=== PATIENT | female | born 1950 | race Caucasian/White ===

== ENCOUNTER 2017-07-06 07:00 | Inpatient (IN) | payer MEDICARE, OTHER, SELFPAY ==
[2017-07-06] VITALS (18 sets, daily range): BP systolic 143–183; BP diastolic 76–105; PULSE 70–92; RESP 16–19; TEMP 36.2–37.4; O2SAT 94–98; BMI 51.3; BMI 51.4
--- NOTE | 2017-07-06 07:10 | ED.RN ---
daughter expressed that pt sx have improved since initally saw her. pt has had SEVERINO since last night and then woke with sx of left sided weakness and decreased sensation, as well as left facial droop which was reported by daughter to be improved upon arrival. no facial drop noted on arrival.
[2017-07-06 07:11] LABS: Bedside Glucose 85 mg/dL (70-110)
--- NOTE | 2017-07-06 07:18 | NURSING ---
NO LW OR POA
--- NOTE | 2017-07-06 07:28 | EKG12_ITS ---
Test Reason : NEURO Blood Pressure : / mmHG Vent. Rate : 073 BPM Atrial Rate : 073 BPM P-R Int : 152 ms QRS Dur : 078 ms QT Int : 386 ms P-R-T Axes : 041 002 047 degrees QTc Int : 425 ms Normal sinus rhythm Normal ECG Confirmed by ALICIA BARNEY MD ([id number]), industrial editor SHERRI GARZA ([id number] on 07/12/2017 2:33:56 PM Referred By: STEVE Confirmed By:ALICIA BARNEY MD
--- NOTE | 2017-07-06 07:28 | CT_ITS ---
STUDY: CT BRAIN WITHOUT CONTRAST REASON FOR EXAM: Female, 67 years old. Left weakness RADIATION DOSAGE (If Supplied By Facility): CTDIvol = ( 60.81 ) mGy, DLP = ( 1021.47 ) mGycm TECHNIQUE: Transaxial CT imaging of the brain was performed without administration of intravenous contrast material. Individualized dose optimization techniques were used for this CT. COMPARISON: December 11, 2013 FINDINGS: The soft tissues are unremarkable. The osseous structures are unremarkable. Normal size ventricles and extra-axial spaces for the patient's age. The white matter tracts are unremarkable. The basal ganglia and thalami are unremarkable. No abnormalities are seen in the brainstem. The cerebellum is unremarkable. There is no intracranial hemorrhage. There are no findings of acute ischemia. The visualized sinuses are unremarkable. CT/Brain/Head without Contrast IMPRESSION: No acute intracranial abnormalities or changes. Electronically Signed: Madhuri Jacobs MD at 8:10 EDT Tel Direct: [phone], Service support ,
[2017-07-06 07:39] LABS: Absolute Lymphocyte Count 2.42 X10^3/ul (0.83-4.51); Absolute Neutrophil Count 2.8 X10^3/uL (2.0-7.7); Basophil# 0.02 X10^3/uL; Basophil% 0.3 % (0-1); Eosinophil# 0.26 X10^3/uL; Eosinophils% 4.5 % (0-5); Hemoglobin 13.1 g/dl (12.0-15.0); Lymphocyte # 2.42 X10^3/ul (4.0); Lymphocyte % 41.4 % (19-41); Mean Corpuscular Hgb 29.9 pg (27.0-32.0); Mean Corpuscular Volume 93.6 fL (81-99); Mean Platelet Vol. 9.9 fl (6.2-12.0); Monocyte# 0.39 X10^3/uL; Monocyte% 6.7 % (0-10); Neutrophil # 2.75 X10^3/uL (2.7-7.7); Neutrophil % 47.1 % (47-70); Platelet Count 243 K/mm3 (150-450); RBC Distribution Width CV 13.2 % (11.6-14.6); RBC Distribution Width SD 45.1 fl (35.1-43.9); Red Blood Count 4.38 M/mm3 (4.2-5.4); White Blood Count 5.8 K/mm3 (4.4-11.0)
--- NOTE | 2017-07-06 07:39 | RAD_ITS ---
STUDY: X-RAY CHEST REASON FOR EXAM: Female, 67 years old. Shortness of breath TECHNIQUE: A single frontal view of the chest was obtained. COMPARISON: November 16, 2016 FINDINGS: The lungs are adequately aerated. There are no focal airspace opacities. There is no blunting of the costophrenic angles. There is stable minimal symmetric pleural thickening in the apices. A small calcified granuloma is again seen in the mid right lung. The cardiac silhouette is normal in size. The mediastinum and hilar regions are unremarkable. The central vessels are prominent. Normal visualized aortic arch and descending thoracic aorta. There is moderate levoscoliosis in the upper thoracic spine. The visualized ribs, clavicles, and shoulders are unremarkable. There is no demonstrated abnormality of the visualized upper abdomen. RAD/Chest 1 View IMPRESSION: Vascular congestion is present. There is no obvious effusion. Electronically Signed: Madhuri Jacobs MD at 8:04 EDT Tel Direct: [phone], Service support ,
[2017-07-06 07:42] LABS: POSITIVE COUNT NO; POSITIVE DIFFERENTIAL NO; POSITIVE MORPHOLOGY NO
[2017-07-06 07:43] LABS: International Normalized Ratio 0.9; Prothrombin Time (Protime)PT. 11.9 SECONDS (11.7-14.9)
[2017-07-06 07:44] LABS: Partial Thromboplast Time 32.4 Seconds (24.1-36.2)
[2017-07-06 07:56] LABS: Anion Gap 6 (5-15); BUN 19 mg/dL (7-18); BUN/Creat Ratio 26.9 RATIO (10-20); Calcium,Total 8.8 mg/dL (8.5-10.1); Chloride 110 mmol/L (98-107); Creatinine, Serum 0.71 mg/dL (0.55-1.02); EST Glomerular Filtration Rate 88 mL/min (>60); Est Glom Filt Rate - Afr Amer 107 mL/min (>60); Glucose 94 mg/dL (74-106); Potassium 4.4 mmol/L (3.5-5.1); Sodium Level 144 mmol/L (136-145)
[2017-07-06] MEDS: Acetaminophen 650 MG Suppository RECTAL (09:12)
--- NOTE | 2017-07-06 09:28 | NURSING ---
104 LT SIDED WEAKNESS, TIA, STROKE PAINTSIL
--- NOTE | 2017-07-06 09:37 | CASEMGMT ---
Social Work Note In to complete the initial assessment as pt is being admitted to [facility]. Introduced self and role at [facility]. The pt reports that she lives alone in a one level home with no entry steps. Denies DME in the home and reports to be independent. Pt still drives. No hx of HHC. Pt does not anticipate needs at discharge. States that her daughter, Tri Tripp, is her HCPOA. States that these are on file, but SW unable to locate. Will relay to inpatient staff to request that the pt's family bring them in. Pt's PCP is Dr. Rios. Pt quit smoking in 1979 and quit drinking 10 years ago. Denies any mental health diagnoses or symptoms. Lists her daughter and sister as supports and both are present on admission. Made aware that case management will follow on the acute side of the hospital. Left vm for Patricia GUEVARA CM, with update. Cassandra King, CONTINUITY WRITER, ORACLE ETL DEVELOPER
--- NOTE | 2017-07-06 09:51 | PCM.HP.STD ---
Problem List (1) Left-sided weakness Status: Acute (2) History of fibromyalgia Status: Chronic (3) Invasive ductal carcinoma of breast Status: Chronic Comment: Right (4) Obesity (BMI 30-39.9) Status: Chronic History of Present Illness Date of Admission: 07/06/17 Chief Complaint: Left sided weakness, left facial droop, slurred speech, gaitr abnormality The patient is a 67 year old F with past medical history of fibromyalgia, reactive airway disease, obesity comes in with complains of gait abnormality, slurred speech, right facial numbness, left facial droop which was present when she woke up at 6 AM. Patient at baseline is a very active patient, does not use any assistive device in walking, woke up this morning and felt a little bit off balance as she was walking to the bathroom. She also felt that her right side of the face was numb and left side of the face was droopy. She called her daughter who noted that his speech was slurred. She had at the time left leg heaviness and numbness. She complained of feeling a little lightheaded but denied any palpitations or dizziness or chest pain or shortness of breath. She had severe pounding headache the night before admission. She usually does not have headaches. No history of hypertension On arrival to the ED, her blood pressure was elevated at 183/93, temperature 97.6 F, heart rate is 78, respiratory rate 19, SPO2 is 95% on room air. Laboratory investigations were unremarkable at admission. Scan of the head was negative for any acute intracranial abnormality. Chest x-ray reported some vascular congestion. Past Medical History Past Medical History (Chronic Problems): Chronic Problems Reactive airway disease that is not asthma (Chronic) NSVT (nonsustained ventricular tachycardia) (Chronic) Invasive ductal carcinoma of breast (Chronic) Right History of fibromyalgia (Chronic) Chronic back pain (Chronic) Obesity (BMI 30-39.9) (Chronic) Somatic dysfunction of rib cage region (Chronic) Benign positional vertigo (Chronic) Allergies latex Allergy (Verified 07/06/17 07:01) Other adhesive Adverse Reaction (Verified 07/06/17 07:01) Other aspirin Adverse Reaction (Verified 07/06/17 07:01) Nausea/Vom/Diarrhea oxycodone [From OxyContin] Adverse Reaction (Verified 07/06/17 07:01) Other CONTROL Allergy (Uncoded 07/06/17 07:01) Other Home Medications: Ambulatory Orders Medication Instructions Recorded No Known/Unobtainable [No Known 11/16/16 Home Medications] Surgical History: adenoidectomy, appendectomy, cholecystectomy, hysterectomy, tonsillectomy, - - All teeth removal/edentulous, breast biopsy 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 Denies: Anorexia, Chills, Fever, Night Sweats, Malaise, Weight Change, Fatigue Eyes: Denies: Blurred vision, Cataracts, Conjunctivae Inflammation, Double vision HEENT: Denies: Difficulty Hearing, Difficulty Swallowing, Head Aches, Hearing Changes, Sinus Congestion, Sinus Drainage Cardiovascular: Denies: Chest Pain, Claudication, Orthopnea, Palpitations, Paroxysmal Noc. Dyspnea Respiratory: Denies: Cough, Hemoptysis, Shortness of breath at rest, Shortness of breath upon exertion, Sputum production Gastrointestinal: Denies: Abdominal Pain, Hematemesis, Nausea, Vomiting Genitourinary: Denies: Dysuria, Frequency, Incontinence Gynecological: Denies: Breast symptoms, Excessively long or heavy periods, Vaginal discharge Musculoskeletal: Denies: Joint Pain, Joint stiffness, Joint swelling, Joint Tenderness Skin: Denies: Rash, Wounds Neurological: Reports: Slurred speech, Difficulty swallowing, Focal weakness, Headaches, Incoordination, Numbness, Tingling. Denies: Tremor, Seizures Psychiatric: Denies: Anxiety, Depression, Homicidal Ideations, Suicidal Ideations Hematologic/ Lymphatic: Denies: Easy Bruising, Easy Bleeding VTE Information - Inpt Only VTE Present on Admission: No VTE Pharm Prophylaxis ordered?: Yes Patient Problems: Active and Suspected Problems Left-sided weakness (Acute) - Physical Exam General: Alert, Oriented x3, Cooperative, - - obese HEENT: Atraumatic, PERRLA, EOMI, Normocephalic Oral: Moist Mucosa Neck: Supple Lungs: Clear to auscultation, Normal air movement Cardiovascular: Regular rate, Regular Rhythm, Normal S1, Normal S2, No murmurs Abdomen: Bowel Sounds Present, Soft, Non Tender, Non-Distended, No Hepato-splenomegaly, Obese Extremities: No edema, Capillary Refill Less than 3 Seconds Skin: No rashes, No breakdown Musculoskeletal: No Tenderness to Palpation of Joints or Extremities Neurological: Cranial nerves II-XII grossly intact - except for left facial numbness, and power of 4/5 in the LLE, Neuro grossly intact Psych/Mental Status: Normal Affect, Appropriate Vital Signs Temp Pulse Resp BP Pulse Ox 97.2 F L 87 16 157/79 H 96 07/06/17 08:24 07/06/17 09:11 07/06/17 09:11 07/06/17 09:11 07/06/17 09:11 Assessment/Plan Active and Suspected Problems Left-sided weakness (Acute) 67-year-old female with past medical history of fibromyalgia, reactive airway disease, obesity comes in with complaints of slurred speech, right-sided numbness, left facial droop, left lower extremity heaviness with numbness. Most of her symptoms had resolved on admission. Vitals were stable. Initial CT of the head was negative 1. Left lower extremity heaviness, gait abnormality, slurred speech concerning for possible TIA versus CVA, positive family history of CVA in the family Initial CT of the head was negative, initial blood pressure on arrival was elevated but came down as patient was being admitted. Plan: Admit to PCU, monitor on telemetry, neurology consult, MRI of the brain, MRA of the head and neck, lipid profile in a.m., 2D echo, HbA1c, PT, OT, ST consult, monitor per protocol. 2. Hypertension, no history of high blood pressure, will allow for permissive hypertension, continue to monitor blood pressure 3. Dysphagia, ongoing for several weeks with food being stuck, failed swallow eval in the ED, will have a bedside evaluation and speech therapy is being consulted. 4. Fibromyalgia 5. Obesity, weight loss and exercise advised 6. Reactive airway disease, no signs of acute exacerbation, would have breathing treatments as needed pain 7. DVT PPx - Lovenox SC Code Visit Inpatient E&M: 45364 Init Hosp L3
--- NOTE | 2017-07-06 09:56 | ED.DCSUM_ITS ---
- ER Visit Summary Date of Service: 07/06/17 Chief Complaint: Left-sided weakness History of Present Illness: The patient is a 67 F who reports that upon getting up at 615 this morning she felt numbness to the right side of her face. She looked in the mirror noted the left side of her face seemed to be drooping. She states her left leg felt like it was giving out when she was walking. She denies paresthesias in her arms or legs. She called her daughter who felt her speech was somewhat slurred and when daughter arrived at her mom's home she did note left facial droop. Facial droop and speech are improved at this time. On initial evaluation she states the facial numbness is improving but not completely resolved. Past history significant for SVT, fibromyalgia, vertigo, uterine and breast cancer, back pain, reactive airway disease. She does have family history of stroke in her father. Physical Examination: Vital signs show initial blood pressure 183/93, otherwise normal. The time of my examination her blood pressure is 167/98. Head and neck examination is grossly unremarkable. Heart is regular rate and rhythm. Lung sounds are clear. Abdomen is soft and nontender. NIH score is 2. She receives one point for left leg weakness. Left leg does fall to the bed by the count of 3, but she is also complaining of left hip pain also. She does have slight decreased sensation to light touch on the right face. Test Results: CT the head shows no acute abnormalities. Portable chest x-ray reveals vascular congestion with no evidence of effusion. EKG is sinus at 73 with no sign of ischemia. CBC and chemistry studies are normal. Coags normal. Troponin less than 0.02. Emergency Department Course and Treatment: Stroke team was not initiated as the patient's symptoms are improving. Patient remained stable throughout her ER stay and repeat evaluation reveals normal sensation on her face. Left leg still falls to the bed by count of 3 giving her an NIH score of 1. Nursing staff did going to do bedside swallow eval but she was not able to pass this. Patient tells the nurse that she has been having trouble swallowing for the last 3 weeks. At this time she will be admitted for remainder of stroke workup. Treatment Plan: [] Disposition: Admit Impression: TIA This note was generated with [employer] software. It may contain incorrect words, spelling, and punctuation that were not noted in review of the chart prior to signing ED Disposition - Plan for ED Patient: Disposition: Acute Care Hospital [facility] Chief Complaint: Neuro S/Sx
--- NOTE | 2017-07-06 10:07 | ECHOCS_ITS ---
Reason For Study: TIA/CVA Procedure This was a 2D Doppler, Color Flow transthoracic echocardiogram. Exam performed portable in patient room. Left Ventricle Normal size and thickness. The estimated ejection fraction is 65 %. Normal diastology for age. No regional wall motion abnormalities noted. Right Ventricle Normal size and thickness. Normal systolic function. Atria Normal left atrium. Normal right atrium. Normal atrial septum. Bubble contrast study negative for right to left interatrial shunt. Mitral Valve Mild diffuse mitral valve thickening. Anterior leaflet mitral valve prolapse. Trivial mitral valve insufficiency. Tricuspid Valve Normal tricuspid valve. Trivial tricuspid valve insufficiency. Right ventricular systolic pressure estimated to be 35 mmHg. Aortic Valve Normal aortic valve. Trisinus/trileaflet aortic valve. Pulmonic Valve Normal pulmonic valve. Trivial pulmonic valve insufficiency. Great Vessels Normal aortic root. Normal arch. Normal inferior vena cava. Inferior vena cava collapse with sniff. Pericardium/Pleural No pericardial effusion. Medication Performed a rapid injection of agitated mix of 9 cc saline and 1cc air to assess for atrial septal defect. Definity0.5ml given slow IV push to enhance endocardial definition. MMode/2D Measurements & Calculations LVIDd: 5.1 cm IVSd: 0.82 cm Ao root diam: 3.2 cm LVIDs: 3.5 cm LVPWd: 0.87 cm LA dimension: 4.3 cm RVDd: 4.0 cm FS: 31.1 % LAV(MOD-bp): 55.1 ml LA A4 area: 19.8 cm2 RA A4 area: 12.1 cm2 LAV(MOD-bp) Indexed: 27.3 ml/m2 LAV(MOD-sp2): 53.8 ml LAV(MOD-sp4): 54.8 ml Doppler Measurements & Calculations MV E max adán: 79.2 cm/sec Lat Peak E' Adán: 7.9 cm/sec Med Peak E' Adán: 6.1 cm/sec MV A max adán: 66.6 cm/sec E/E' lat: 10.1 E/E' med: 13.1 MV E/A: 1.2 Ao V2 max: 125.8 cm/sec LV V1 max: 98.7 cm/sec PA V2 max: 88.4 cm/sec Ao max P.3 mmHg LV V1 max P.9 mmHg Ao V2 mean: 96.9 cm/sec Ao mean P.0 mmHg Ao V2 VTI: 27.5 cm TR max adán: 271.6 cm/sec TR max P.5 mmHg Interpretation Summary The estimated ejection fraction is 65 %. Normal diastology for age. Bubble contrast study negative for right to left interatrial shunt. Equivical anterior mitral valve prolapse. Trivial mitral valve insufficiency. Trivial tricuspid valve insufficiency. Right ventricular systolic pressure estimated to be 35 mmHg. Compared to echo report dated 06/06/2014, no appreciable changes noted. The study was technically difficult. Contrast injection was performed. Ordering Physician: Mindi Marie Referring Physician: Yair Rios Performed By: Indira Watters, MARCELLUS, RVT
--- NOTE | 2017-07-06 10:07 | MRI_ITS ---
STUDY: MRA NECK WITHOUT CONTRAST REASON FOR EXAM: Female, 67 years old. CVA;left sided weakness, gait abnormality, slurred speech, right facial numbness, left facial droop; hx breast ca,uterine ca. TECHNIQUE: Source images were obtained, MIPs were performed. The study was performed unenhanced. COMPARISON: None. FINDINGS: RIGHT CAROTID ARTERIES: Normal right common carotid artery (CCA). There is loss of signal at the carotid bulb and origin of the right ICA. Normal remaining right internal carotid (ICA) artery without a hemodynamically significant stenosis. Normal visualized cervical portion of the right internal carotid artery. Normal origin of the right external carotid artery (ECA). LEFT CAROTID ARTERIES: Normal left common carotid artery (CCA). There is loss of signal at the carotid bulb and origin of the right ICA. Normal remaining left internal carotid (ICA) artery without a hemodynamically significant stenosis. Normal visualized cervical portion of the left internal carotid artery. Normal origin of the left external carotid artery (ECA). VERTEBRAL ARTERIES: Normal antegrade flow within the bilateral vertebral artery without a hemodynamically significant stenosis. MRI/MRA Neck without Contrast IMPRESSION: Left signal at the right carotid bulbs which may be secondary to artifact versus stenosis. Further evaluation with sonography can be obtained. Electronically Signed: Jose Guadalupe Butler MD at 15:43 EDT Tel , Service support ,
--- NOTE | 2017-07-06 10:07 | MRI_ITS ---
STUDY: MRI BRAIN WITHOUT CONTRAST REASON FOR EXAM: Female, 67 years old. CVA;left sided weakness, gait abnormality, slurred speech, right facial numbness, left facial droop; hx breast ca,uterine ca. TECHNIQUE: Standardized multiplanar fat and water weighted pulse sequences were obtained. COMPARISON: None. FINDINGS: Normal size of the ventricles and extra-axial spaces for the patient's age. Normal white matter tracts of the supratentorial brain. Normal bilateral basal ganglia. Normal thalami. There is no extra-axial fluid accumulation. Normal flow voids within the major intracranial circulation suggesting patency by spin echo criteria. Normal sella turcica, pituitary gland, infundibular stalk, optic chiasm and hypothalamus. Normal tectal plate and pineal gland. Normal midbrain, anand and medulla. Normal cerebellum. Normal basal cisterns. Normal bilateral temporal bones. Normal bilateral internal auditory canals. No demonstrated orbital abnormality, within the constraints of a routine brain study. Normal visualized paranasal sinuses. Normal calvarium and skull base. Normal visualized soft tissue structures. Normal visualized upper cervical spine. MRI/Brain without Contrast IMPRESSION: Normal unenhanced MRI of the brain. Electronically Signed: Jose Guadalupe Butler MD at 15:35 EDT Tel , Service support ,
--- NOTE | 2017-07-06 10:07 | MRI_ITS ---
STUDY: MRA OF THE HEAD WITHOUT CONTRAST REASON FOR EXAM: Female, 67 years old. CVA;left sided weakness, gait abnormality, slurred speech, right facial numbness, left facial droop; hx breast ca,uterine ca. TECHNIQUE: 3-D [id number]-[id number] (TOF) imaging was performed with MIPs. The study was performed unenhanced. COMPARISON: None. FINDINGS: Normal bilateral petrous carotid arteries. Normal right cavernous carotid artery with a normal supraclinoid bifurcation. Normal left cavernous carotid artery with a normal supraclinoid bifurcation. Normal right A1 segments of the anterior cerebral artery. Normal left A1 segments of the anterior cerebral artery. Normal intact anterior communicating artery (ACOM). Normal bilateral A2 segments of the anterior cerebral arteries. Normal right M1 and M2 segments of the middle cerebral arteries, with a normal M1 bifurcation. Normal left M1 and M2 segments of the middle cerebral arteries, with a normal M1 bifurcation. Normal right posterior communicating artery (PCOM). Normal left posterior communicating artery (PCOM). Normal bilateral vertebral arteries. Normal basilar artery with a normal basilar bifurcation. The visualized bilateral superior cerebellar (SCA) arteries are normal. Normal bilateral P1, P2 and visualized P3 segments of the posterior cerebral arteries. There is no demonstrated aneurysm of the [place]. There is no major vessel occlusion or hemodynamically significant stenosis. There is no demonstrated abnormality of the visualized brain. MRI/MRA Head ONLY without Contrast IMPRESSION: Normal MRA of the head Electronically Signed: Jose Guadalupe Butler MD at 15:39 EDT Tel , Service support ,
[2017-07-06] MEDS: Ipratropium/Albuterol Sulfate 3 ML AMPUL.NEB INHALATION ×2 (11:17→18:55)
--- NOTE | 2017-07-06 11:45 | PCM.CONS.GEN ---
Reason for Consult Date of Consultation: 07/06/17 Reason for Consultation: LEFT FACIAL DROOP AND ATAXIA History of Present Illness: The patient is a 67 year old left handed white female awoke this am with left facial droop and stumbling, normal when she went to the bathroom earlier at 4am, now improved but not baseline. daughter also noted slurred speech. reports left leg gives out and left arm was also weak but now improved. no triggers, no med changes, no stress, does admit to insomnia for 3-4 days for unclear reasons. doesnt take asa at home. no meds. no tobacco, quit remotely. per admit h&p:The patient is a 67 year old F with past medical history of fibromyalgia, reactive airway disease, obesity comes in with complains of gait abnormality, slurred speech, right facial numbness, left facial droop which okayed when she woke up at 6 AM. Patient at baseline is a very active patient, does not use any assistive device in walking, woke up this morning and felt a little bit off balance as she was walking to the bathroom. She also felt that her right side of the face was numb and left side of the face was droopy. She called her daughter who noted that his speech was slurred. She had at the time left leg heaviness and numbness. She complained of feeling a little lightheaded but denied any palpitations or dizziness or chest pain or shortness of breath. She had severe pounding headache the night before admission. She usually does not have headaches. No history of hypertension On arrival to the ED, her blood pressure was elevated at 183/93, temperature 97.6 F, heart rate is 78, respiratory rate 19, SPO2 is 95% on room air. Laboratory investigations were unremarkable at admission. Scan of the head was negative for any acute intracranial abnormality. Chest x-ray reported some vascular congestion. Past Medical History Past Medical History (Chronic Problems): Chronic Problems Reactive airway disease that is not asthma (Chronic) NSVT (nonsustained ventricular tachycardia) (Chronic) Invasive ductal carcinoma of breast (Chronic) Right History of fibromyalgia (Chronic) Chronic back pain (Chronic) Obesity (BMI 30-39.9) (Chronic) Somatic dysfunction of rib cage region (Chronic) Benign positional vertigo (Chronic) Allergies latex Allergy (Verified 07/06/17 07:01) Other adhesive Adverse Reaction (Verified 07/06/17 07:01) Other aspirin Adverse Reaction (Verified 07/06/17 07:01) Nausea/Vom/Diarrhea oxycodone [From OxyContin] Adverse Reaction (Verified 07/06/17 07:01) Other CONTROL Allergy (Uncoded 07/06/17 07:01) Other Home Medications: Ambulatory Orders Medication Instructions Recorded No Known/Unobtainable [No Known 11/16/16 Home Medications] Surgical History: adenoidectomy, appendectomy, cholecystectomy, hysterectomy, tonsillectomy, - - All teeth removal/edentulous, breast biopsy Psychiatric History: Anxiety 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 Smoking Status: Former smoker - *Family History Paternal History Items: Diabetes, Heart Disease Maternal History Items: Diabetes, Heart Disease Review of Systems Constitutional: Denies: Chills, Fever, Weight Change HEENT: Denies: Head Aches, Sinus Congestion, Sinus Drainage Cardiovascular: Denies: Chest Pain, Palpitations Respiratory: Denies: Cough, Shortness of breath at rest, Sputum production Gastrointestinal: Denies: Abdominal Pain, Nausea, Vomiting Genitourinary: Denies: Dysuria Musculoskeletal: Denies: Joint Pain, Joint Tenderness Skin: Denies: Rash, Wounds Neurological: Denies: Numbness, Tingling, Focal weakness Psychiatric: Denies: Anxiety, Depression, Homicidal Ideations, Suicidal Ideations Hematologic/ Lymphatic: Denies: Easy Bruising, Easy Bleeding Patient Problems: Active and Suspected Problems Left-sided weakness (Acute) - Physical Exam General: Alert, Oriented x3, Cooperative HEENT: Atraumatic, PERRLA, EOMI, Normocephalic Neck: Supple, No JVD, Negative Carotid Bruits Lungs: Clear to auscultation, Normal air movement Cardiovascular: Regular rate, No murmurs Abdomen: Bowel Sounds Present, Soft, Non Tender Extremities: No edema, Capillary Refill Less than 3 Seconds Skin: No rashes, No breakdown Musculoskeletal: No Tenderness to Palpation of Joints or Extremities Neurological: Cranial nerves II-XII grossly intact, - - left hip flexor giveway weakness Psych/Mental Status: Normal Affect, Appropriate Vital Signs Temp Pulse Resp BP Pulse Ox 36.6 C 70 16 169/89 H 98 07/06/17 10:19 07/06/17 11:17 07/06/17 11:17 07/06/17 10:19 07/06/17 11:17 Oxygen Delivery Method Room Air Weight: 140 kg Body Mass Index (BMI) 51.3 Laboratory Tests Past 24 Hrs 07/06/17 11:15 Troponin I Pending Current Home Med List Medication Instructions Recorded Confirmed Type No Known/Unobtainable [No Known 11/16/16 07/06/17 History Home Medications] Current Medications Generic Name Dose Route Start Last Admin Trade Name Freq PRN Reason Stop Dose Admin Albuterol/Ipratropium 3 ml 07/06/17 10:30 07/06/17 11:17 Duoneb INHALATION 3 ml Q4HWA.RT MADIE Administration Aspirin 300 mg 07/06/17 10:07 Aspirin RECTAL DAILY MADIE Atorvastatin Calcium 80 mg 07/06/17 10:07 Lipitor PO DAILY MADIE Bisacodyl 5 mg 07/06/17 10:07 Dulcolax PO DAILY PRN PRN Constipation Enoxaparin Sodium 40 mg 07/06/17 10:07 Lovenox SC DAILY@1000 MADIE Sodium Chloride 1,000 mls @ 100 mls/hr 07/06/17 10:07 IV .Q10H MADIE Magnesium Hydroxide 30 ml 07/06/17 10:07 Milk Of Magnesia PO DAILY PRN Constipation Ondansetron HCl 4 mg 07/06/17 10:07 Zofran IV Q8H PRN PRN NAUSEA Assessment/Plan Active and Suspected Problems Left-sided weakness (Acute) left sided weakness, nonphysiologic currently, possible conversion vs tia vs migraine await mri agree with current meds pt, ot dc if mri ok and ambulating safely
[2017-07-06] MEDS: 0.9% Normal Saline 1,000 ML 100 ML IV (12:03)
[2017-07-06] MEDS: Enoxaparin 40 MG/0.4 ML Syringe SC (12:03)
[2017-07-06] MEDS: Atorvastatin Calcium 80 MG Tablet PO (12:04)
[2017-07-06] MEDS: Acetaminophen 325 MG Tablet 650 MG PO (13:59)
[2017-07-06 14:14] LABS: Hemoglobin A1c 5.7 % (4.2-6.3)
[2017-07-06] MEDS: oxyCODONE 5 MG Tablet PO ×2 (18:05→23:49)
[2017-07-07] VITALS (9 sets, daily range): BP systolic 112–136; BP diastolic 71–84; PULSE 67–83; RESP 16–18; TEMP 36.8–37.2; O2SAT 93–97; BMI 51.3
[2017-07-07] MEDS: oxyCODONE 5 MG Tablet PO (05:15)
[2017-07-07 05:51] LABS: Hematocrit 40.2 % (37-47); Hemoglobin 13.1 g/dl (12.0-15.0); Mean Corp Hgb Conc 32.6 g/gl (32-36); Mean Corpuscular Hgb 30.3 pg (27.0-32.0); Mean Corpuscular Volume 93.1 fL (81-99); Mean Platelet Vol. 9.9 fl (6.2-12.0); Platelet Count 255 K/mm3 (150-450); RBC Distribution Width CV 13.1 % (11.6-14.6); Red Blood Count 4.32 M/mm3 (4.2-5.4); White Blood Count 5.2 K/mm3 (4.4-11.0)
[2017-07-07 06:03] LABS: Scan Indicated on CBC? Y/N NO
[2017-07-07 06:14] LABS: BUN 16 mg/dL (7-18); BUN/Creat Ratio 25.6 RATIO (10-20); Calcium,Total 8.5 mg/dL (8.5-10.1); Cholesterol 252 mg/dL (200); Creatinine, Serum 0.62 mg/dL (0.55-1.02); EST Glomerular Filtration Rate 101 mL/min (>60); Est Glom Filt Rate - Afr Amer 123 mL/min (>60); Glucose 104 mg/dL (74-106); Triglycerides 158 mg/dL
[2017-07-07 06:15] LABS: Anion Gap 9 (5-15); Chloride 109 mmol/L (98-107); High Density Lipoprotein 57 mg/dL; Potassium 4.3 mmol/L (3.5-5.1); Sodium Level 143 mmol/L (136-145); Very Low Density Lipoprotein 32 mg/dL (5-40)
[2017-07-07] MEDS: Ipratropium/Albuterol Sulfate 3 ML AMPUL.NEB INHALATION ×2 (06:58→11:18)
--- NOTE | 2017-07-07 08:15 | PCM.DC ---
- Discharge Diagnoses Current Active Problems: Current Active and Chronic Problems Left-sided weakness (Acute) Reason(s) for Visit for Discharge Instructions: Slurred speech. left lower extremity weakness You will use the following diet at home:: Cardiac Your food should be the consistency of: Mechanical soft (ground) Your liquids should be the consistency of: Regular/Thin Discharge Activity: Return to Normal Activity Allergies/Adverse Reactions: Allergies latex Allergy (Verified 07/06/17 07:01) Other adhesive Adverse Reaction (Verified 07/06/17 07:01) Other aspirin Adverse Reaction (Verified 07/06/17 07:01) Nausea/Vom/Diarrhea oxycodone [From OxyContin] Adverse Reaction (Verified 07/06/17 07:01) Other CONTROL Allergy (Uncoded 07/06/17 07:01) Other Medications to take at Discharge Atorvastatin Calcium [Lipitor] 80 mg PO DAILY #30 tab 07/07/17 The following prescriptions were given: Atorvastatin Calcium [Lipitor] 80 mg PO DAILY #30 tab Primary Care Physician: Yair Rios MD [Primary Care Provider] - Please follow up with your Primary Care Physician in: within 2 weeks Please Follow Up With: Robel Youssef MD When: within 2 weeks Proposed Discharge Date: 07/07/17
[2017-07-07] MEDS: Atorvastatin Calcium 80 MG Tablet PO (10:04)
[2017-07-07] MEDS: Aspirin 325 MG Tablet PO (10:04)
--- NOTE | 2017-07-07 10:15 | CASEMGMT ---
This RN CM to room to speak with pt regarding possible HHC or outpt therapy at this time and pt refuses all at this time. Pt and therapy state that she has improved since yesterday. Pt states no further questions/concerns at this time. Advised pt that if she gets home and feels the need for further therapy that she could f/u with her PCP for order, voices understanding. S[place]en ISMAEL CRUZ
--- NOTE | 2017-07-07 13:41 | PCM.DC.SUM ---
Discharge Date and Diagnosis - Problem List Patient Problems: Active and Suspected Problems Left-sided weakness (Acute) Date of Admission: 07/06/17 Date of Discharge: 07/07/17 - Primary Discharge Diagnosis Active and Suspected Problems Left-sided weakness (Acute), unspecified etiology - Secondary Discharge Diagnosis Chronic Problems Reactive airway disease that is not asthma (Chronic) NSVT (nonsustained ventricular tachycardia) (Chronic) Invasive ductal carcinoma of breast (Chronic) Right History of fibromyalgia (Chronic) Chronic back pain (Chronic) Obesity (BMI 30-39.9) (Chronic) Somatic dysfunction of rib cage region (Chronic) Benign positional vertigo (Chronic) Hospital Course and Treatment Imaging Results: Clinical Impression(s) from Imaging Studies Brain CT 07/06/17 07:28 IMPRESSION: No acute intracranial abnormalities or changes. Electronically Signed: Madhuri Jacobs MD at 8:10 EDT Tel Direct: [phone], Service support , Chest X-Ray 07/06/17 07:39 IMPRESSION: Vascular congestion is present. There is no obvious effusion. Electronically Signed: Madhuri Jacobs MD at 8:04 EDT Tel Direct: [phone], Service support , Brain MRI 07/06/17 10:07 IMPRESSION: Normal unenhanced MRI of the brain. Electronically Signed: Jose Guadalupe Butler MD at 15:35 EDT Tel , Service support , Head MRA 07/06/17 10:07 IMPRESSION: Normal MRA of the head Electronically Signed: Jose Guadalupe Butler MD at 15:39 EDT Tel , Service support , Neck MRA 07/06/17 10:07 IMPRESSION: Left signal at the right carotid bulbs which may be secondary to artifact versus stenosis. Further evaluation with sonography can be obtained. Electronically Signed: Jose Guadalupe Butler MD at 15:43 EDT Tel , Service support , Neurology Operations: None Procedures: 2-D Echocardiogram Summary of Care Provided: 67-year-old female with past medical history of fibromyalgia, reactive airway disease, obesity comes in with complaints of slurred speech, right-sided numbness, left facial droop, left lower extremity heaviness with numbness. Most of her symptoms had resolved on admission. Vitals were stable. Initial CT of the head was negative 1. Left lower extremity heaviness, gait abnormality, slurred speech concerning for possible TIA vs CVA vs migraine as she had a preceding headache the night before. There is a positive family history of CVA. Initial CT of the head was negative, initial blood pressure on arrival was elevated but came down as patient was being admitted. Patient was seen by neurology, symptoms were felt to be due to either conversion disorder versus TIA versus migraine. MRI of the head, MRA of the head and neck negative. Patient's 2D echo was normal, HbA1c was normal. Seen by both physical, occupational therapy and speech therapy and cleared for discharge. She was started on statins as lipids profiles with abnormal. 2. Hypertension, elevated at admission, improved over course of hospital stay, normal BP at discharge, will need to follow-up with PCP. 3. Dysphagia, ongoing for several weeks with food being stuck, failed swallow evaluation in the ED, seen by speech therapy, cleared to have a normal diet. Cannot explain episodic dysphagia. 4. Fibromyalgia 5. Obesity, weight loss and exercise advised 6. Reactive airway disease, no signs of acute exacerbation in this admission. Discharge Diet: No Restrictions Discharge Activity: Return to Normal Activity Home Medications: Medications to take at Discharge Atorvastatin Calcium [Lipitor] 80 mg PO DAILY #30 tab 07/07/17 Following Prescrptions Were Given to Patient: Atorvastatin Calcium [Lipitor] 80 mg PO DAILY #30 tab Primary Care Physician: Yair Rios MD [Primary Care Provider] - Please follow up with your Primary Care Physician in: within 2 weeks Please Follow Up With: Robel Youssef MD When: within 2 weeks Disposition: Home Minutes spent on discharge:: 25 Patient Condition:: Stable Medical Necessity - Tobacco Use Smoking Status: Former smoker Tobacco Use: Non-smoker Meaningful Use Info Meaningful Use Diagnoses (Choose all that apply): None applicable Code Visit Inpatient E&M: 37791 Disch Hosp
--- NOTE | 2017-07-07 13:53 | DS.PCM_ITS ---
Discharge Date and Diagnosis - Problem List Patient Problems: Active and Suspected Problems Left-sided weakness (Acute) Date of Admission: 07/06/17 Date of Discharge: 07/07/17 - Primary Discharge Diagnosis Active and Suspected Problems Left-sided weakness (Acute), unspecified etiology - Secondary Discharge Diagnosis Chronic Problems Reactive airway disease that is not asthma (Chronic) NSVT (nonsustained ventricular tachycardia) (Chronic) Invasive ductal carcinoma of breast (Chronic) Right History of fibromyalgia (Chronic) Chronic back pain (Chronic) Obesity (BMI 30-39.9) (Chronic) Somatic dysfunction of rib cage region (Chronic) Benign positional vertigo (Chronic) Hospital Course and Treatment Imaging Results: Clinical Impression(s) from Imaging Studies Brain CT 07/06/17 07:28 IMPRESSION: No acute intracranial abnormalities or changes. Electronically Signed: Madhuri Jacobs MD at 8:10 EDT Tel Direct: [phone], Service support , Chest X-Ray 07/06/17 07:39 IMPRESSION: Vascular congestion is present. There is no obvious effusion. Electronically Signed: Madhuri Jacobs MD at 8:04 EDT Tel Direct: [phone], Service support , Brain MRI 07/06/17 10:07 IMPRESSION: Normal unenhanced MRI of the brain. Electronically Signed: Jose Guadalupe Butler MD at 15:35 EDT Tel , Service support , Head MRA 07/06/17 10:07 IMPRESSION: Normal MRA of the head Electronically Signed: Jose Guadalupe Butler MD at 15:39 EDT Tel , Service support , Neck MRA 07/06/17 10:07 IMPRESSION: Left signal at the right carotid bulbs which may be secondary to artifact versus stenosis. Further evaluation with sonography can be obtained. Electronically Signed: Jose Guadalupe Butler MD at 15:43 EDT Tel , Service support , Neurology Operations: None Procedures: 2-D Echocardiogram Summary of Care Provided: 67-year-old female with past medical history of fibromyalgia, reactive airway disease, obesity comes in with complaints of slurred speech, right-sided numbness, left facial droop, left lower extremity heaviness with numbness. Most of her symptoms had resolved on admission. Vitals were stable. Initial CT of the head was negative 1. Left lower extremity heaviness, gait abnormality, slurred speech concerning for possible TIA vs CVA vs migraine as she had a preceding headache the night before. There is a positive family history of CVA. Initial CT of the head was negative, initial blood pressure on arrival was elevated but came down as patient was being admitted. Patient was seen by neurology, symptoms were felt to be due to either conversion disorder versus TIA versus migraine. MRI of the head, MRA of the head and neck negative. Patient's 2D echo was normal, HbA1c was normal. Seen by both physical, occupational therapy and speech therapy and cleared for discharge. She was started on statins as lipids profiles with abnormal. 2. Hypertension, elevated at admission, improved over course of hospital stay, normal BP at discharge, will need to follow-up with PCP. 3. Dysphagia, ongoing for several weeks with food being stuck, failed swallow evaluation in the ED, seen by speech therapy, cleared to have a normal diet. Cannot explain episodic dysphagia. 4. Fibromyalgia 5. Obesity, weight loss and exercise advised 6. Reactive airway disease, no signs of acute exacerbation in this admission. Discharge Diet: No Restrictions Discharge Activity: Return to Normal Activity Home Medications: Medications to take at Discharge Atorvastatin Calcium [Lipitor] 80 mg PO DAILY #30 tab 07/07/17 Following Prescrptions Were Given to Patient: Atorvastatin Calcium [Lipitor] 80 mg PO DAILY #30 tab Primary Care Physician: Yair Rios MD [Primary Care Provider] - Please follow up with your Primary Care Physician in: within 2 weeks Please Follow Up With: Robel Youssef MD When: within 2 weeks Disposition: Home Minutes spent on discharge:: 25 Patient Condition:: Stable Medical Necessity - Tobacco Use Smoking Status: Former smoker Tobacco Use: Non-smoker Meaningful Use Info Meaningful Use Diagnoses (Choose all that apply): None applicable Code Visit Inpatient E&M: 89585 Disch Hosp
== END 2017-07-07 15:15 | disposition home or self-care (01) | DRG 948 ==
LOC: ED 07:48 → PCU 09:40
PROVIDERS: Admitting Provider Internal Medicine; Emergency Provider Emergency Medicine; Family Provider Family Medicine; PCP Family Medicine; Visit Provider Internal Medicine
DX: R53.1 Weakness (principal); Z68.43 Body mass index [BMI] 50.0-59.9, adult; R13.10 Dysphagia, unspecified; M79.7 Fibromyalgia; R20.0 Anesthesia of skin; R29.810 Facial weakness; R47.81 Slurred speech; R27.0 Ataxia, unspecified; Z85.3 Personal history of malignant neoplasm of breast; Z85.42 Personal history of malignant neoplasm of other parts of uterus; E66.9 Obesity, unspecified; Z87.891 Personal history of nicotine dependence; J98.8 Other specified respiratory disorders; R03.0 Elevated blood-pressure reading, without diagnosis of hypertension
CPT/HCPCS: 36415; 70450; 70544; 70547; 70551; 71045; 80048; 80061; 82962; 83036; 84484; 85025; 85027; 85610; 85730; 92526; 93005; 93306; 94640; 97116; 97162; 97165; 97802; 99285; J7030; Q9957; A4216; C8929

== ENCOUNTER 2018-01-31 15:38 | Emergency (ER) | payer MEDICARE, OTHER, SELFPAY ==
[2018-01-31 15:39] VITALS: BP 169/91; PULSE 94; RESP 18; TEMP 35.7; O2SAT 97; BMI 36.6
--- NOTE | 2018-01-31 15:52 | RAD_ITS ---
STUDY: X-RAY - RIGHT KNEE REASON FOR EXAM: Female, 67 years old. Pain. TECHNIQUE: 4 view(s) of the knee. COMPARISON: None. FINDINGS: There is no evidence of fracture or dislocation. There are moderate tricompartmental degenerative changes. There are no radiodense foreign bodies. RAD/Knee 4 or More Views IMPRESSION: No fracture or dislocation. Moderate tricompartmental degenerative change. Electronically Signed: Bran Beavers, at 16:30 EDT Tel , Service support ,
--- NOTE | 2018-01-31 15:57 | ED.VISSUMM ---
- ER Visit Summary Date of Service: 01/31/18 Chief Complaint: Right knee pain History of Present Illness: The patient is a 67 F who presents for an injury to the right knee. Patient [place] when she suddenly felt a snap in the back of her knee. She has severe pain with weightbearing and cannot bend her knee. Patient was able to hobble back to her car but has extreme pain trying to walk. No history of prior knee injury. She has a history of breast cancer in 2006. She is not on blood thinners. No numbness or tingling in the leg or foot at this time. Physical Examination: She is awake and alert laying in bed in no acute distress. Patient has leg in mild knee flexion but is able to fully extend and lift the leg off the bed. Unable to flex the knee more than a few degrees secondary to pain. No tenderness or fullness in the popliteal fossa. Tenderness to palpation of the lateral and medial knee. No tenderness over the kneecap. No palpable effusion. Severe pain with varus stress. No laxity noted. Unable to perform drawer testing secondary to unable to bend the knee. PT pulses are 2+ and symmetric. Temperature and color is symmetric in the lower extremities. Motor function and sensation intact. Test Results: Clinical Impression(s) from Imaging Studies Knee X-Ray 01/31/18 15:52 IMPRESSION: No fracture or dislocation. Moderate tricompartmental degenerative change. Electronically Signed: Bran Beavers, at 16:30 EDT Tel , Service support , Medications Given Discontinued Medications Hydrocodone Bitart/Acetaminophen ([place] 5mg-325mg) 1 tablet PO X1 ONE Stop: 01/31/18 15:57 Last Admin: 01/31/18 16:03 Dose: 1 tablet Emergency Department Course and Treatment: Patient presents with significant pain in her right knee and limited range of motion. X-ray of the knee showed no fracture dislocation but did show degenerative changes. Patient's mechanism of injury was not concerning for a knee dislocation that self resolved that might result in vascular compromise. She had no neurovascular deficits distal to the knee. Patient was placed in a knee immobilizer and given crutches. She was given a prescription for [place] and will use [id number] pain medication for mild to moderate pain. Worker's Comp. paperwork was filled out patient was given work restrictions. She was discharged home with referral to orthopedics. Treatment Plan: [] Disposition: [] Impression: Severe right knee sprain This note was generated with [employer] dictation software. It may contain incorrect words, spelling, and punctuation that were not noted in review of the chart prior to signing ED Disposition - Plan for ED Patient: Disposition: Home or Assisted Living Chief Complaint: Lower Extremity Injury Instructions: ED Sprain Knee Prescriptions: Hydrocodone Bitart/Apap 5-325 [[place] 5MG-325MG] 1 tab PO Q6H PRN PRN 3 Days #10 tab PRN Reason: Pain Referrals: Yair Rios MD [Primary Care Provider] - 3-5 Days if not improving Bran Everett MD [STAFF PHYSICIAN] - As soon as possible Additional Instructions: Wear the knee immobilizer and use the crutches, and do not put weight on the leg until you have followed up with orthopedics. Ice your knee several times a day. Use [id number] pain medication of your choice, and use the [place] for severe pain. [place] contains Tylenol, so do not take more than 3000 mg of Tylenol total from all pain medications. Follow-up with orthopedics, calling tomorrow to make an appointment for within the week. If you have any worsening of your condition or any new concerning symptoms, please return immediately to the emergency department for another evaluation.
[2018-01-31] MEDS: HYDROcodone Bitartrate/Apap 5/325 Tablet PO (16:03)
--- NOTE | 2018-01-31 17:10 | ED.DEP ---
ED Disposition - Plan for ED Patient: Disposition: Home or Assisted Living Chief Complaint: Lower Extremity Injury Instructions: ED Sprain Knee Prescriptions: Hydrocodone Bitart/Apap 5-325 [[place] 5MG-325MG] 1 tab PO Q6H PRN PRN 3 Days #10 tab PRN Reason: Pain Referrals: Yair Rios MD [Primary Care Provider] - 3-5 Days if not improving Bran Everett MD [STAFF PHYSICIAN] - As soon as possible Additional Instructions: Wear the knee immobilizer and use the crutches, and do not put weight on the leg until you have followed up with orthopedics. Ice your knee several times a day. Use [id number] pain medication of your choice, and use the [place] for severe pain. [place] contains Tylenol, so do not take more than 3000 mg of Tylenol total from all pain medications. Follow-up with orthopedics, calling tomorrow to make an appointment for within the week. If you have any worsening of your condition or any new concerning symptoms, please return immediately to the emergency department for another evaluation.
--- NOTE | 2018-01-31 17:15 | DCINST.ED_ITS ---
ED Disposition - Plan for ED Patient: Disposition: Home or Assisted Living Chief Complaint: Lower Extremity Injury Instructions: ED Sprain Knee Prescriptions: Hydrocodone Bitart/Apap 5-325 [[place] 5MG-325MG] 1 tab PO Q6H PRN PRN 3 Days #10 tab PRN Reason: Pain Referrals: Yair Rios MD [Primary Care Provider] - 3-5 Days if not improving Bran Everett MD [STAFF PHYSICIAN] - As soon as possible Additional Instructions: Wear the knee immobilizer and use the crutches, and do not put weight on the leg until you have followed up with orthopedics. Ice your knee several times a day. Use [id number] pain medication of your choice, and use the [place] for severe pain. [place] contains Tylenol, so do not take more than 3000 mg of Tylenol total from all pain medications. Follow-up with orthopedics, calling tomorrow to make an appointment for within the week. If you have any worsening of your condition or any new concerning symptoms, please return immediately to the emergency department for another evaluation.
== END 2018-01-31 17:40 | disposition home or self-care (01) ==
PROVIDERS: Emergency Provider Emergency Medicine; Family Provider Family Medicine; PCP Family Medicine
DX: S83.91XA Sprain of unspecified site of right knee, initial encounter (principal); Z85.3 Personal history of malignant neoplasm of breast; X58.XXXA Exposure to other specified factors, initial encounter; Y93.01 Activity, walking, marching and hiking; Y92.240 Courthouse as the place of occurrence of the external cause; Y99.8 Other external cause status
CPT/HCPCS: 73564; 99284